=== PATIENT | female | born 1960 | race African-American/Black ===

== ENCOUNTER 2017-05-02 20:14 | Emergency (ER) | payer OTHER ==
[2017-05-02] MEDS ORDERED: Ketorolac Tromethamine 30 MG/ML VIAL ONE (22:44)
== END 2017-05-02 23:03 | disposition home or self-care (01) ==
LOC: ERS 20:14
DX: K05.00 Acute gingivitis, plaque induced (principal); K02.9 Dental caries, unspecified; I10 Essential (primary) hypertension; J45.909 Unspecified asthma, uncomplicated; E11.9 Type 2 diabetes mellitus without complications; F17.210 Nicotine dependence, cigarettes, uncomplicated
CPT/HCPCS: 96372; J1885

== ENCOUNTER 2017-08-23 12:49 | Outpatient (CLI) | payer OTHER ==
--- NOTE | 2017-08-25 12:21 | MMO ---
BILATERAL SCREENING MAMMOGRAMS: INDICATIONS: Annual screening. COMPARISON: 10/03/2015 and 01/23/2010 FINDINGS: Interpretation of this examination is assisted with computer aided detection. There are scattered fibroglandular elements bilaterally. No suspicious mass, clustered microcalcifications, or area of particular distortion evident. IMPRESSION: BI-RADS Category 1-Negative. Recommend routine annual mammographic screening. POS: [facility]
== END 2017-08-23 12:50 | disposition home or self-care (01) ==
LOC: SCSMAMMO 12:49
PROVIDERS: ATTEND Nurse Practitioner Family
DX: Z12.31 Encounter for screening mammogram for malignant neoplasm of breast (principal)
CPT/HCPCS: 77067

== ENCOUNTER 2018-07-20 14:30 | Outpatient (CLI) | payer OTHER ==
--- NOTE | 2018-07-20 16:30 | RAD ---
TWO VIEWS OF THE LEFT FEMUR: COMPARISON: Left hip radiograph 07/20/2018. HISTORY: Left hip and thigh pain for a year. FINDINGS: Two views left femur show no evidence of acute fracture or dislocation. No degenerative change is se en in the knee. IMPRESSION: Unremarkable exam. POS: [facility]
--- NOTE | 2018-07-20 16:31 | RAD ---
TWO VIEWS OF THE LEFT HIP: COMPARISON: None. HISTORY: Left hip and thigh pain for a year. FINDINGS: Two views of the left hip show no evidence of acute fracture or dislocation. No degenerative changes are seen. IMPRESSION: Unremarkable exam. POS: [facility]
== END 2018-07-20 14:31 | disposition home or self-care (01) ==
LOC: BICRAD 14:30
PROVIDERS: ATTEND Nurse Practitioner Family
DX: M54.32 Sciatica, left side (principal)

== ENCOUNTER 2018-09-07 08:02 | Emergency (ER) | payer OTHER ==
[2018-09-07 08:40] LABS: #Basophils 0.1 thou/uL (0.0-0.2); #Eosinphils 0.3 thou/uL (0.0-0.7); #Lymphocytes 3.4 thou/uL (1.20-3.40); #Monocytes 0.4 thou/uL (0.11-0.59); #Neutrophils 2.9 thou/uL (1.40-6.50); %Eosinophils 4.7 % (0.0-10.0); %Lymphocytes 48.5 % (21.0-51.0); %Monocytes 5.3 % (0.0-10.0); %Neutrophils 40.6 % (42.0-75.0); Hemoglobin 14.4 g/dL (12.0-16.0); Mean Corpuscular HGB CONC 33.9 g/dL (32.0-36.0); Mean Corpuscular Hemoglobin 32.2 pg (27.0-31.0); Mean Corpuscular Volume 94.9 fL (78.0-98.0); Platelet Count 94 thou/uL (130-400); RBC Distribution Width 12.1 % (11.5-14.5); Red Blood Cell (RBC) Count 4.47 mill/uL (4.20-5.40); White Blood Cell (WBC) Count 7.1 thou/uL (4.8-10.8)
[2018-09-07 09:00] LABS: ALT (SGPT) 114 U/L (8-55); AST (SGOT) 111 U/L (5-34); Albumin 3.4 g/dL (3.5-5.0); Alkaline Phosphatase 105 U/L (40-150); Anion Gap 11 mmol/L (10-20); BUN (Urea Nitrogen) 17 mg/dL (9.8-20.1); Bilirubin, Total 0.7 mg/dL (0.2-1.2); Calc. Creatinine Clearance 0 mL/min (70-130); Calcium 9.9 mg/dL (7.8-10.44); Carbon Dioxide 29 mmol/L (22-29); Chloride 95 mmol/L (98-107); Estimated GFR-MDRD 83; Globulin 4.6 g/dL (2.4-3.5); Glucose 360 mg/dL (70-105); Potassium 3.6 mmol/L (3.5-5.1); Sodium 131 mmol/L (136-145)
--- NOTE | 2018-09-07 09:48 | RAD ---
EXAM: Single view of the chest HISTORY: Cough COMPARISON: 02/17/2014 FINDINGS: Single view of the chest shows a normal sized cardiomediastinal silhouette. There is no candace dence of consolidation, mass, or pleural effusion. The bones are unremarkable. IMPRESSION: No evidence of acute cardiopulmonary disease
== END 2018-09-07 10:20 | disposition home or self-care (01) ==
LOC: ERS 08:02
DX: S00.06XA Insect bite (nonvenomous) of scalp, initial encounter (principal); E11.65 Type 2 diabetes mellitus with hyperglycemia; R11.0 Nausea; I10 Essential (primary) hypertension; J45.909 Unspecified asthma, uncomplicated; F17.210 Nicotine dependence, cigarettes, uncomplicated; Z79.899 Other long term (current) drug therapy; Z79.82 Long term (current) use of aspirin; Z79.84 Long term (current) use of oral hypoglycemic drugs; W57.XXXA Bitten or stung by nonvenomous insect and other nonvenomous arthropods, initial encounter
CPT/HCPCS: 36415; 36416; 71045; 80053; 82010; 85025; 96360

== ENCOUNTER 2019-08-29 09:22 | Outpatient (CLI) | payer OTHER ==
--- NOTE | 2019-08-29 10:21 | MMO ---
Bilateral MAMMO Bilat Screen [facility]. CLINICAL HISTORY: Patient is 59 years old and is seen for screening. The patient has no family history of breast cancer. The patient has no personal history of cancer. VIEWS: The views performed were: bilateral craniocaudal and bilateral mediolateral oblique. FILMS COMPARED: The present examination has been compared to prior imaging studies performed at [facility] on 01/23/2010 and 10/03/2015. This study has been interpreted with the assistance of computer-aided detection. MAMMOGRAM FINDINGS: There are scattered fibroglandular densities. There are no suspicious masses, suspicious calcifications, or new areas of architectural distortion. IMPRESSION: THERE IS NO MAMMOGRAPHIC EVIDENCE OF MALIGNANCY. A ROUTINE FOLLOW-UP MAMMOGRAM IN 1 YEAR IS RECOMMENDED. ACR BI-RADS Category 1 - Negative MAMMOGRAPHY NOTE: 1. A negative mammogram report should not delay a biopsy if a dominant of clinically suspicious mass is present. 2. Approximately 10% to 15% of breast cancers are not detected by mammography. 3. Adenosis and dense breasts may obscure an underlying neoplasm. Reported by: RACHEL TRIVEDI MD Electonically Signed: [id number]
== END 2019-08-29 09:23 | disposition home or self-care (01) ==
LOC: BICMAMMO 09:22
PROVIDERS: ATTEND Nurse Practitioner Family
DX: Z12.31 Encounter for screening mammogram for malignant neoplasm of breast (principal)
CPT/HCPCS: 77067

== ENCOUNTER 2019-09-12 00:05 | Emergency (ER) | payer OTHER ==
[2019-09-12 00:41] LABS: #Basophils 0.1 thou/uL (0.0-0.2); #Eosinphils 0.2 thou/uL (0.0-0.7); #Lymphocytes 3.4 thou/uL (1.20-3.40); #Monocytes 0.5 thou/uL (0.11-0.59); #Neutrophils 3.8 thou/uL (1.40-6.50); %Basophils 0.7 % (0.0-1.0); %Lymphocytes 42.7 % (21.0-51.0); %Monocytes 6.5 % (0.0-10.0); %Neutrophils 47.2 % (42.0-75.0); Hemoglobin 14.8 g/dL (12.0-16.0); Mean Corpuscular HGB CONC 32.4 g/dL (32.0-36.0); Mean Corpuscular Hemoglobin 32.1 pg (27.0-31.0); Mean Platelet Volume 11.9 fL (7.4-10.4); Platelet Count 95 thou/uL (130-400); RBC Distribution Width 12.5 % (11.5-14.5); Red Blood Cell (RBC) Count 4.63 mill/uL (4.20-5.40)
[2019-09-12 01:02] LABS: ALT (SGPT) 166 U/L (8-55); AST (SGOT) 147 U/L (5-34); Albumin 3.5 g/dL (3.5-5.0); Alkaline Phosphatase 125 U/L (40-110); Anion Gap 17 mmol/L (10-20); BUN (Urea Nitrogen) 22 mg/dL (9.8-20.1); Bilirubin, Total 0.7 mg/dL (0.2-1.2); CK (CPK) 52 U/L (29-168); Calc. Creatinine Clearance 0 mL/min (70-130); Calcium 9.4 mg/dL (7.8-10.44); Carbon Dioxide 21 mmol/L (22-29); Chloride 98 mmol/L (98-107); Estimated GFR-MDRD 75; Globulin 4.9 g/dL (2.4-3.5); Glucose 373 mg/dL (70-105); Potassium 3.7 mmol/L (3.5-5.1); Protein, Total 8.4 g/dL (6.0-8.3); Sodium 132 mmol/L (136-145)
--- NOTE | 2019-09-12 07:36 | RAD ---
CHEST 1 VIEW: Date: 09/12/2019 INDICATION: Chest pain, shortness of breath. COMPARISON: Prior exam dated 09/07/2018. IMPRESSION: No acute cardiopulmonary abnormality. Examination is not appreciably changed from the comparison stud y. POS: [facility]
== END 2019-09-12 01:57 | disposition home or self-care (01) ==
LOC: ERS 00:05
DX: J45.909 Unspecified asthma, uncomplicated (principal); F12.10 Cannabis abuse, uncomplicated; R07.9 Chest pain, unspecified; E11.9 Type 2 diabetes mellitus without complications; I10 Essential (primary) hypertension; F17.210 Nicotine dependence, cigarettes, uncomplicated; Z79.84 Long term (current) use of oral hypoglycemic drugs; Z79.899 Other long term (current) drug therapy
CPT/HCPCS: 71045; 80053; 82550; 84484; 85025; 93005

== ENCOUNTER 2019-09-13 18:53 | Emergency (ER) | payer OTHER ==
[2019-09-14 12:13] LABS: SARS-CoV-2 MS2 Positive; SARS-CoV-2 N Gene Negative; SARS-CoV-2 S Gene Negative; SARS-CoV-2 by NAA Not Detected (NotDetected); SARS-CoV-2 orf1ab Negative
== END 2019-09-13 19:22 | disposition home or self-care (01) ==
LOC: ERS 18:53
DX: Z20.828 Contact with and (suspected) exposure to other viral communicable diseases (principal)
CPT/HCPCS: 87635; 99283; U0003

== ENCOUNTER 2022-02-03 09:23 | Inpatient (IN) | payer OTHER ==
[2022-02-03] MEDS ORDERED: diphenhydrAMINE 50 MG/ML VIAL ONE (09:42)
[2022-02-03 10:15] LABS: #Eosinphils 0.1 thou/uL (0.0-0.7); #Lymphocytes 1.9 thou/uL (1.20-3.40); #Monocytes 0.9 thou/uL (0.11-0.59); %Basophils 0.2 % (0.0-1.0); %Eosinophils 2.1 % (0.0-10.0); %Monocytes 12.5 % (0.0-10.0); %Neutrophils 57.2 % (42.0-75.0); Hemoglobin 8.6 g/dL (12.0-16.0); Mean Corpuscular HGB CONC 29.7 g/dL (32.0-36.0); Mean Corpuscular Hemoglobin 22.1 pg (27.0-31.0); Mean Corpuscular Volume 74.4 fl (78.0-98.0); Mean Platelet Volume 9.8 fL (7.4-10.4); Platelet Count 153 10x3/uL (130-400); Red Blood Cell (RBC) Count 3.88 mill/uL (4.20-5.40); White Blood Cell (WBC) Count 6.9 10x3/uL (4.8-10.8)
[2022-02-03 10:27] LABS: ALT (SGPT) 100 U/L (8-55); AST (SGOT) 109 U/L (5-34); Albumin 3.2 g/dL (3.5-5.0); Alkaline Phosphatase 114 U/L (40-110); Anion Gap 15 mmol/L (10-20); BUN (Urea Nitrogen) 22 mg/dL (9.8-20.1); Bilirubin, Total 0.4 mg/dL (0.2-1.2); Calc. Creatinine Clearance 0 mL/min (70-130); Calcium 9.1 mg/dL (7.8-10.44); Carbon Dioxide 25 mmol/L (22-29); Chloride 102 mmol/L (98-107); Estimated GFR 83; Glucose 352 mg/dL (70-105); Potassium 3.8 mmol/L (3.5-5.1); Protein, Total 8.2 g/dL (6.0-8.3); Sodium 138 mmol/L (136-145)
[2022-02-03 10:28] LABS: Acetaminophen Less than 10.0 mcg/mL (10.0-30.0); Alcohol Less than 10 mg/dL (Less than 10); Salicylate Less than 8.0 mg/dL (15.0-30.0)
[2022-02-03 10:30] LABS: Band 3 % (5-11); Hypochromia SLIGHT = 6-15 cells (100X) (0-5/hpf); Lymphocytes 23 % (21-51); MDiff Complete? YES; Microcytosis SLIGHT = 6-15 cells (100X) (0-5/hpf); Monocytes 4 % (0-10); Neutrophil 69 % (42-75); Platelet Morphology Comment Appears Adequate; Polychromasia MODERATE = 3-4 cells (100X) (0-2/hpf); Target Cells SLIGHT = 2-5 cells (100X) (0-1/hpf)
[2022-02-03 11:36] LABS: Bilirubin Negative (Negative); Blood, Urine Negative (Negative); Clarity Clear (Clear); Glucose, Urine (Dipstick) Greater than 1000 mg/dL (Negative); Ketone, Urine Negative (Negative); Leukocyte Negative Leu/uL (Negative); Nitrite Negative (Negative); Protein, Urine (Dipstick) 10 mg/dL (Neg-Trace); Specific Gravity, Urine 1.025 (1.002-1.036); pH, Urine 5.5 (5.0-9.0)
[2022-02-03 11:43] LABS: Amphetamine Not Detected (NotDetected); Barbiturates Screen Not Detected (NotDetected); Benzodiazepine Screen Not Detected (NotDetected); Cocaine Metabolite Screen Detected (NotDetected); Methadone Not Detected (NotDetected); Methamphetamine Not Detected (NotDetected); Opiate Screen Not Detected (NotDetected); Oxycodone Screen Not Detected (NotDetected); Phencyclidine (PCP) Not Detected (NotDetected); THC/Cannabinoid Screen Not Detected (NotDetected); Tricyclic Screen Not Detected (NotDetected)
[2022-02-03] MEDS ORDERED: Aspirin Chewable 81 MG TAB ONE (12:33)
[2022-02-03] MEDS ORDERED: HumaLOG 300 UNITS/3 ML VIAL SC PRN (12:42)
[2022-02-03] MEDS ORDERED: Dextrose 50% Abboject 50 ML SYRINGE SLOW IVP PRN (12:42)
[2022-02-03] MEDS ORDERED: Dextrose 5% in Water 1,000 ML IV PRN (12:42)
[2022-02-03] MEDS ORDERED: LORazepam 2 MG/ML SYR.(CARPUJECT) ONE (14:04)
[2022-02-03] MEDS ORDERED: Nitroglycerin 2% Ointment 1 INCH/1 GM Packet ONE (14:05)
[2022-02-03] MEDS ORDERED: Furosemide 20 MG/2 ML VIAL ONE (14:05)
[2022-02-03] MEDS ORDERED: Nicotine 14 MG PATCH TD PRN (14:49)
[2022-02-03] MEDS ORDERED: Electrolyte Replacement Protocol FS PRN (15:00)
[2022-02-03] MEDS: Furosemide 40 MG/4 ML VIAL SLOW IVP SCH (16:18)
[2022-02-03] MEDS: Carvedilol 6.25 MG TAB PO SCH (18:48)
[2022-02-03] MEDS: Mometasone 200 MCG/Formoterol 5 MCG 120 PUFF INHALER INH SCH (18:49)
[2022-02-03] MEDS ORDERED: Non-Formulary Item 1 EACH (Insulin Detemir [Levemir Flextouch] 100 UNIT/ML Insuln.Pen) SQ SCH (21:00)
[2022-02-04] MEDS: Rosuvastatin 5 MG TAB PO SCH ×2 (00:44→20:53)
[2022-02-04] MEDS: metFORMIN 500 MG TAB PO SCH ×2 (00:44→08:44)
[2022-02-04 00:58] VITALS: BMI 27.0
[2022-02-04 02:08] LABS: SARS-CoV-2 NAA Rapid Test Not Detected (NotDetected)
[2022-02-04] MEDS ORDERED: Amlodipine 5 MG TAB PO SCH (04:00)
[2022-02-04 04:51] LABS: #Eosinphils 0.2 thou/uL (0.0-0.7); #Lymphocytes 1.9 thou/uL (1.20-3.40); #Monocytes 0.5 thou/uL (0.11-0.59); #Neutrophils 4.8 thou/uL (1.40-6.50); %Basophils 0.3 % (0.0-1.0); %Eosinophils 2.7 % (0.0-10.0); %Lymphocytes 25.2 % (21.0-51.0); %Monocytes 7.1 % (0.0-10.0); %Neutrophils 64.8 % (42.0-75.0); Hemoglobin 8.7 g/dL (12.0-16.0); Mean Corpuscular HGB CONC 29.4 g/dL (32.0-36.0); Mean Corpuscular Hemoglobin 22.2 pg (27.0-31.0); Mean Corpuscular Volume 75.5 fl (78.0-98.0); Mean Platelet Volume 10.1 fL (7.4-10.4); Platelet Count 159 10x3/uL (130-400); RBC Distribution Width 17.2 % (11.5-14.5); Red Blood Cell (RBC) Count 3.92 mill/uL (4.20-5.40); White Blood Cell (WBC) Count 7.4 10x3/uL (4.8-10.8)
[2022-02-04 05:05] LABS: ALT (SGPT) 96 U/L (8-55); AST (SGOT) 100 U/L (5-34); Albumin 3.1 g/dL (3.5-5.0); Alkaline Phosphatase 100 U/L (40-110); Anion Gap 14 mmol/L (10-20); BUN (Urea Nitrogen) 26 mg/dL (9.8-20.1); Bilirubin, Total 0.3 mg/dL (0.2-1.2); Calc. Creatinine Clearance 73 mL/min (70-130); Calcium 8.6 mg/dL (7.8-10.44); Carbon Dioxide 22 mmol/L (22-29); Chloride 106 mmol/L (98-107); Estimated GFR 94; Globulin 5.1 g/dL (2.4-3.5); Glucose 196 mg/dL (70-105); Magnesium 1.5 mg/dL (1.6-2.6); Potassium 3.9 mmol/L (3.5-5.1); Protein, Total 8.2 g/dL (6.0-8.3); Sodium 138 mmol/L (136-145)
[2022-02-04] MEDS: Furosemide 40 MG/4 ML VIAL SLOW IVP SCH (05:55)
[2022-02-04] MEDS: Mometasone 200 MCG/Formoterol 5 MCG 120 PUFF INHALER INH SCH ×2 (07:45→18:49)
[2022-02-04] MEDS ORDERED: Magnesium 2 GM/50 ML(in water) 2 GM in Premix Bag 1 BAG IVPB SCH (08:00)
[2022-02-04] MEDS: Carvedilol 6.25 MG TAB PO SCH (08:43)
[2022-02-04] MEDS: Clopidogrel Bisulfate 75 MG TAB PO SCH (08:44)
[2022-02-04] MEDS: Aspirin 81 mg Enteric Coated Tablet PO SCH (08:44)
[2022-02-04] MEDS ORDERED: Insulin Glargine 30 UNITS/0.3 ML VIAL SC SCH (09:00)
[2022-02-04] MEDS ORDERED: NIFEdipine XL 90 MG TAB PO SCH (09:00)
[2022-02-04] MEDS ORDERED: Enoxaparin Sodium 40 MG/0.4 ML SYRINGE SC SCH (09:00)
[2022-02-04] MEDS ORDERED: Sodium Chloride 0.9% 500 ML IV SCH (12:30)
[2022-02-04] MEDS ORDERED: hydrALAZINE 25 MG TAB PO PRN (12:35)
[2022-02-04] MEDS ORDERED: Sodium Chloride 0.9% 1,000 ML IV SCH (12:45)
[2022-02-04] MEDS: Albuterol Sulfate 2.5 mg/3 ml Neb NEB PRN (16:42)
[2022-02-04] MEDS ORDERED: HumaLOG 300 UNITS/3 ML VIAL SC PRN (17:40)
[2022-02-04] MEDS: Heparin 5,000 UNITS/ML VIAL SC SCH (20:52)
[2022-02-04] MEDS: Montelukast Sodium 10 mg Tablet PO SCH (20:53)
[2022-02-04] MEDS: HumaLOG 300 UNITS/3 ML VIAL SC PRN (20:54)
[2022-02-05] MEDS: HumaLOG 300 UNITS/3 ML VIAL SC PRN ×2 (00:22→22:17)
[2022-02-05 04:40] LABS: #Eosinphils 0.1 thou/uL (0.0-0.7); #Lymphocytes 2.4 thou/uL (1.20-3.40); #Monocytes 1.1 thou/uL (0.11-0.59); #Neutrophils 5.8 thou/uL (1.40-6.50); %Basophils 0.2 % (0.0-1.0); %Eosinophils 1.1 % (0.0-10.0); %Lymphocytes 25.2 % (21.0-51.0); %Monocytes 11.2 % (0.0-10.0); %Neutrophils 62.3 % (42.0-75.0); Mean Corpuscular HGB CONC 29.7 g/dL (32.0-36.0); Mean Corpuscular Hemoglobin 21.9 pg (27.0-31.0); Mean Corpuscular Volume 73.9 fl (78.0-98.0); Mean Platelet Volume 10.1 fL (7.4-10.4); Platelet Count 156 10x3/uL (130-400); RBC Distribution Width 17.1 % (11.5-14.5); Red Blood Cell (RBC) Count 3.67 mill/uL (4.20-5.40); White Blood Cell (WBC) Count 9.3 10x3/uL (4.8-10.8)
[2022-02-05 04:50] LABS: ALT (SGPT) 97 U/L (8-55); AST (SGOT) 104 U/L (5-34); Alkaline Phosphatase 104 U/L (40-110); Anion Gap 14 mmol/L (10-20); BUN (Urea Nitrogen) 28 mg/dL (9.8-20.1); Bilirubin, Total 0.3 mg/dL (0.2-1.2); Calc. Creatinine Clearance 60 mL/min (70-130); Calcium 8.6 mg/dL (7.8-10.44); Carbon Dioxide 23 mmol/L (22-29); Chloride 101 mmol/L (98-107); Estimated GFR 74; Globulin 5.1 g/dL (2.4-3.5); Glucose 275 mg/dL (70-105); Phosphorus 2.4 mg/dL (2.3-4.7); Potassium 3.8 mmol/L (3.5-5.1); Protein, Total 8.1 g/dL (6.0-8.3); Sodium 134 mmol/L (136-145)
[2022-02-05] MEDS ORDERED: Magnesium 2 GM/50 ML(in water) 2 GM in Premix Bag 1 BAG IVPB SCH (08:00)
[2022-02-05] MEDS: Clopidogrel Bisulfate 75 MG TAB PO SCH (10:08)
[2022-02-05] MEDS: Aspirin 81 mg Enteric Coated Tablet PO SCH (10:08)
[2022-02-05] MEDS: metFORMIN 500 MG TAB PO SCH ×3 (10:08→19:54)
[2022-02-05] MEDS: Heparin 5,000 UNITS/ML VIAL SC SCH (10:09)
[2022-02-05] MEDS: Mometasone 200 MCG/Formoterol 5 MCG 120 PUFF INHALER INH SCH ×2 (10:35→18:39)
[2022-02-05] MEDS ORDERED: NIFEdipine XL 30 MG TAB PO PRN (11:11)
[2022-02-05] MEDS ORDERED: Meclizine HCl 25 MG TAB PO PRN (13:28)
[2022-02-05] MEDS ORDERED: NIFEdipine XL 30 MG TAB PO SCH (13:30)
[2022-02-05] MEDS: Albuterol Sulfate 2.5 mg/3 ml Neb NEB PRN ×2 (18:41→22:47)
[2022-02-05] MEDS: Montelukast Sodium 10 mg Tablet PO SCH (20:31)
[2022-02-05] MEDS: Rosuvastatin 5 MG TAB PO SCH (20:31)
[2022-02-06] MEDS: Albuterol Sulfate 2.5 mg/3 ml Neb NEB PRN ×3 (02:40→07:26)
[2022-02-06] MEDS: HumaLOG 300 UNITS/3 ML VIAL SC PRN ×2 (06:23→18:33)
[2022-02-06] MEDS: Mometasone 200 MCG/Formoterol 5 MCG 120 PUFF INHALER INH SCH ×2 (07:25→18:33)
[2022-02-06] MEDS: metFORMIN 500 MG TAB PO SCH ×2 (08:58→16:30)
[2022-02-06] MEDS: glipiZIDE 10 MG TAB PO SCH (08:58)
[2022-02-06] MEDS: Clopidogrel Bisulfate 75 MG TAB PO SCH (08:59)
[2022-02-06] MEDS: Aspirin 81 mg Enteric Coated Tablet PO SCH (08:59)
[2022-02-06] MEDS: NIFEdipine XL 30 MG TAB PO SCH (09:08)
[2022-02-06 09:52] LABS: #Eosinphils 0.2 thou/uL (0.0-0.7); #Monocytes 1.2 thou/uL (0.11-0.59); #Neutrophils 7.2 thou/uL (1.40-6.50); %Basophils 0.3 % (0.0-1.0); %Eosinophils 1.7 % (0.0-10.0); %Lymphocytes 19.2 % (21.0-51.0); %Monocytes 11.2 % (0.0-10.0); %Neutrophils 67.6 % (42.0-75.0); Hemoglobin 8.5 g/dL (12.0-16.0); Mean Corpuscular HGB CONC 30.6 g/dL (32.0-36.0); Mean Corpuscular Hemoglobin 22.7 pg (27.0-31.0); Mean Corpuscular Volume 74.2 fl (78.0-98.0); Platelet Count 152 10x3/uL (130-400); RBC Distribution Width 17.5 % (11.5-14.5); Red Blood Cell (RBC) Count 3.75 mill/uL (4.20-5.40); White Blood Cell (WBC) Count 10.6 10x3/uL (4.8-10.8)
[2022-02-06] MEDS ORDERED: Furosemide 40 MG/4 ML VIAL SLOW IVP SCH (11:15)
[2022-02-06 11:44] LABS: ALT (SGPT) 97 U/L (8-55); AST (SGOT) 102 U/L (5-34); Albumin 3.1 g/dL (3.5-5.0); Alkaline Phosphatase 103 U/L (40-110); Anion Gap 14 mmol/L (10-20); BUN (Urea Nitrogen) 23 mg/dL (9.8-20.1); Bilirubin, Total 0.4 mg/dL (0.2-1.2); Calc. Creatinine Clearance 68 mL/min (70-130); Calcium 8.5 mg/dL (7.8-10.44); Carbon Dioxide 20 mmol/L (22-29); Chloride 105 mmol/L (98-107); Estimated GFR 87; Globulin 5.2 g/dL (2.4-3.5); Glucose 332 mg/dL (70-105); Potassium 4.1 mmol/L (3.5-5.1); Protein, Total 8.3 g/dL (6.0-8.3); Sodium 135 mmol/L (136-145)
[2022-02-06] MEDS: Triple Antibiotic Oint 1 GM Packet TOP SCH ×2 (16:30→21:16)
[2022-02-06] MEDS: Insulin Glargine 30 UNITS/0.3 ML VIAL SC SCH (21:16)
[2022-02-06] MEDS: Montelukast Sodium 10 mg Tablet PO SCH (21:16)
[2022-02-06] MEDS: Rosuvastatin 5 MG TAB PO SCH (21:16)
[2022-02-07 05:14] LABS: #Eosinphils 0.2 thou/uL (0.0-0.7); #Lymphocytes 2.4 thou/uL (1.20-3.40); #Monocytes 1.5 thou/uL (0.11-0.59); #Neutrophils 9.4 thou/uL (1.40-6.50); %Basophils 0.2 % (0.0-1.0); %Eosinophils 1.3 % (0.0-10.0); %Lymphocytes 17.8 % (21.0-51.0); %Monocytes 11.4 % (0.0-10.0); %Neutrophils 69.3 % (42.0-75.0); Hemoglobin 8.6 g/dL (12.0-16.0); Mean Corpuscular HGB CONC 30.9 g/dL (32.0-36.0); Mean Corpuscular Hemoglobin 22.9 pg (27.0-31.0); Mean Corpuscular Volume 73.9 fl (78.0-98.0); Mean Platelet Volume 10.9 fL (7.4-10.4); Platelet Count 160 10x3/uL (130-400); RBC Distribution Width 17.4 % (11.5-14.5); Red Blood Cell (RBC) Count 3.76 mill/uL (4.20-5.40); White Blood Cell (WBC) Count 13.5 10x3/uL (4.8-10.8)
[2022-02-07] MEDS: Furosemide 20 MG/2 ML VIAL SLOW IVP SCH ×2 (05:33→15:00)
[2022-02-07 05:37] LABS: Anion Gap 12 mmol/L (10-20); BUN (Urea Nitrogen) 23 mg/dL (9.8-20.1); Calc. Creatinine Clearance 71 mL/min (70-130); Carbon Dioxide 23 mmol/L (22-29); Chloride 106 mmol/L (98-107); Estimated GFR 91; Glucose 129 mg/dL (70-105); Magnesium 1.5 mg/dL (1.6-2.6); Sodium 137 mmol/L (136-145)
[2022-02-07] MEDS ORDERED: Magnesium 2 GM/50 ML(in water) 2 GM in Premix Bag 1 BAG IVPB SCH (08:00)
[2022-02-07] MEDS: Mometasone 200 MCG/Formoterol 5 MCG 120 PUFF INHALER INH SCH ×2 (08:02→18:57)
[2022-02-07] MEDS ORDERED: FLU VACC QS2022-23(6MOS UP)/PF 60 MCG/0.5 ML SYRINGE IM ONE (09:00)
[2022-02-07] MEDS: glipiZIDE 10 MG TAB PO SCH (09:26)
[2022-02-07] MEDS: metFORMIN 500 MG TAB PO SCH ×2 (09:27→17:15)
[2022-02-07] MEDS: Triple Antibiotic Oint 1 GM Packet TOP SCH ×3 (09:27→19:36)
[2022-02-07] MEDS: Aspirin 81 mg Enteric Coated Tablet PO SCH (09:27)
[2022-02-07] MEDS: NIFEdipine XL 30 MG TAB PO SCH (09:27)
[2022-02-07] MEDS: Clopidogrel Bisulfate 75 MG TAB PO SCH (09:27)
[2022-02-07] MEDS ORDERED: NIFEdipine XL 30 MG TAB PO PRN (11:48)
[2022-02-07] MEDS ORDERED: NIFEdipine XL 60 MG TAB PO SCH (12:00)
[2022-02-07] MEDS: HumaLOG 300 UNITS/3 ML VIAL SC PRN (13:00)
[2022-02-07] MEDS: Carvedilol 3.125 MG TAB PO SCH (17:15)
[2022-02-07] MEDS: Insulin Glargine 30 UNITS/0.3 ML VIAL SC SCH (19:36)
[2022-02-07] MEDS: Montelukast Sodium 10 mg Tablet PO SCH (19:37)
[2022-02-07] MEDS: Rosuvastatin 5 MG TAB PO SCH (19:37)
[2022-02-08] MEDS: Acetaminophen 500 MG TAB PO PRN ×2 (00:58→06:17)
[2022-02-08] MEDS: Albuterol Sulfate 2.5 mg/3 ml Neb NEB PRN (03:42)
[2022-02-08] MEDS: HumaLOG 300 UNITS/3 ML VIAL SC PRN (05:34)
[2022-02-08] MEDS: Furosemide 20 MG/2 ML VIAL SLOW IVP SCH (05:34)
[2022-02-08 05:47] LABS: #Eosinphils 0.2 thou/uL (0.0-0.7); #Lymphocytes 2.7 thou/uL (1.20-3.40); #Monocytes 1.1 thou/uL (0.11-0.59); #Neutrophils 6.6 thou/uL (1.40-6.50); %Basophils 0.3 % (0.0-1.0); %Eosinophils 2.1 % (0.0-10.0); %Lymphocytes 25.2 % (21.0-51.0); %Monocytes 10.4 % (0.0-10.0); Mean Corpuscular HGB CONC 28.7 g/dL (32.0-36.0); Mean Corpuscular Hemoglobin 21.8 pg (27.0-31.0); Mean Platelet Volume 9.8 fL (7.4-10.4); Platelet Count 182 10x3/uL (130-400); RBC Distribution Width 17.7 % (11.5-14.5); Red Blood Cell (RBC) Count 3.68 mill/uL (4.20-5.40); White Blood Cell (WBC) Count 10.7 10x3/uL (4.8-10.8)
[2022-02-08 06:08] LABS: ALT (SGPT) 103 U/L (8-55); AST (SGOT) 126 U/L (5-34); Albumin 2.9 g/dL (3.5-5.0); Alkaline Phosphatase 99 U/L (40-110); Anion Gap 15 mmol/L (10-20); BUN (Urea Nitrogen) 30 mg/dL (9.8-20.1); Bilirubin, Total 0.4 mg/dL (0.2-1.2); Calc. Creatinine Clearance 42 mL/min (70-130); Calcium 8.9 mg/dL (7.8-10.44); Carbon Dioxide 21 mmol/L (22-29); Chloride 100 mmol/L (98-107); Estimated GFR 48; Globulin 5.1 g/dL (2.4-3.5); Glucose 348 mg/dL (70-105); Magnesium 1.7 mg/dL (1.6-2.6); Potassium 4.2 mmol/L (3.5-5.1); Sodium 132 mmol/L (136-145)
[2022-02-08] MEDS ORDERED: Magnesium 2 GM/50 ML(in water) 2 GM in Premix Bag 1 BAG IVPB SCH (06:45)
[2022-02-08] MEDS: Mometasone 200 MCG/Formoterol 5 MCG 120 PUFF INHALER INH SCH (07:53)
[2022-02-08] MEDS ORDERED: Insulin Glargine 30 UNITS/0.3 ML VIAL SC SCH (09:00)
[2022-02-08] MEDS ORDERED: NIFEdipine XL 60 MG TAB PO SCH (09:00)
[2022-02-08 09:50] VITALS: BP 184/93; TEMP 98.2
[2022-02-08] MEDS: glipiZIDE 10 MG TAB PO SCH (09:52)
[2022-02-08] MEDS: Carvedilol 3.125 MG TAB PO SCH (09:52)
[2022-02-08] MEDS: Clopidogrel Bisulfate 75 MG TAB PO SCH (09:52)
[2022-02-08] MEDS: metFORMIN 500 MG TAB PO SCH (09:52)
[2022-02-08] MEDS: Aspirin 81 mg Enteric Coated Tablet PO SCH (09:53)
[2022-02-08] MEDS: Triple Antibiotic Oint 1 GM Packet TOP SCH (09:54)
[2022-02-09] MEDS ORDERED: Furosemide 40 MG TAB PO SCH (07:30)
== END 2022-02-08 12:00 | disposition home or self-care (01) | DRG 291 ==
LOC: ERS 09:23 → ERHOLD 12:58 → 2NO 21:26
PROVIDERS: ADMIT Hospitalist; ATTEND Internal Medicine
DX: I11.0 Hypertensive heart disease with heart failure (principal); G92.8 Other toxic encephalopathy; I50.33 Acute on chronic diastolic (congestive) heart failure; E87.1 Hypo-osmolality and hyponatremia; I25.10 Atherosclerotic heart disease of native coronary artery without angina pectoris; E11.40 Type 2 diabetes mellitus with diabetic neuropathy, unspecified; F17.210 Nicotine dependence, cigarettes, uncomplicated; E11.65 Type 2 diabetes mellitus with hyperglycemia; F14.10 Cocaine abuse, uncomplicated; E11.51 Type 2 diabetes mellitus with diabetic peripheral angiopathy without gangrene; J45.909 Unspecified asthma, uncomplicated; D64.9 Anemia, unspecified; F19.10 Other psychoactive substance abuse, uncomplicated; K59.00 Constipation, unspecified; E78.5 Hyperlipidemia, unspecified; I16.0 Hypertensive urgency; E83.42 Hypomagnesemia; I08.1 Rheumatic disorders of both mitral and tricuspid valves; B18.2 Chronic viral hepatitis C; Z20.822 Contact with and (suspected) exposure to COVID-19; Z86.718 Personal history of other venous thrombosis and embolism; Z98.51 Tubal ligation status; Z79.82 Long term (current) use of aspirin; Z79.4 Long term (current) use of insulin; Z79.899 Other long term (current) drug therapy; Z79.84 Long term (current) use of oral hypoglycemic drugs; Z98.890 Other specified postprocedural states
CPT/HCPCS: 36415; 36416; 51701; 70450; 71045; 80048; 80053; 80306; 80307; 81003; 83735; 83880; 84100; 84443; 84484; 85025; 93005; 93306; 94664; 96361; 96374; 96375; 97139; J1200; J1644; J1650; J1815; J1940; J2060; J3475; J7030; J7050; J7611; J7620